=== PATIENT | male | born 1955 | race African-American/Black ===

== ENCOUNTER 2022-01-02 00:31 | Emergency (ER) | payer MEDICARE, SELFPAY ==
[2022-01-02 00:34] VITALS: BP 120/76; PULSE 100; O2SAT 97
--- NOTE | 2022-01-02 00:42 | ED.GENADULT ---
HPI - General Adult General Stated complaint: ALLERGIC RX Time Seen by Provider: 01/02/22 00:35 Source: patient and EMS Mode of arrival: EMS Limitations: no limitations History of Present Illness HPI narrative: patient comes to the emergency room from a hotel, complaining of itchiness in his neck and his back. Patient states that he has been seen a few days ago for this itchiness, he was prescribed Benadryl, no relief. patient denies chest pain or shortness of breath, no hives. Patient states the reason he came to the hospital is because he was told by his previous providers that if the symptomsdid not improve, to return to the emergency room. Patient states he has appointment pending with an life enrichment assistant in couple of months Related Data Previous Rx's Medication Instructions Recorded hydrocortisone 1 % topical cream 1 appl topical TID PRN itching 01/02/22 #28.4 grams prednisone 20 mg tablet 20 mg PO DAILY #3 tabs 01/02/22 Allergies Allergy/AdvReac Type Severity Reaction Status Date / Time No Known Allergies Allergy Verified 01/02/22 00:41 Review of Systems Review of Systems: Constitutional : No Weight loss, No Fever, No Chills, No Night Sweats, No Fatigue, No Malaise ENT/Mouth : No Hearing loss, No Ear Pain, No Nasal Congestion, No Sinus Pain, No Hoarseness, No sore throat, No Rhinorrhea, No Swallowing Difficulty Eyes: No Eye Pain, No Swelling, No Redness, No Foreign Body, No Discharge, No Vision Changes Cardiovascular : No Chest Pain, No SOB, No Dyspnea on Exertion, No Orthopnea, No Edema, No Palpitations Respiratory : No Cough, No Sputum, No Wheezing, No Smoke Exposure, No Dyspnea Gastrointestinal : No Nausea, No Vomiting, No Diarrhea, No Constipation, No abdominal Pain, No Hematochezia, No Melena Genitourinary : no irregular bleeding, No Dysuria, No Urinary Frequency, No Hematuria, No Urinary Incontinence, No Urgency, No Flank Pain, No Urinary Flow Changes, No Hesitancy Musculoskeletal : No joint pain, No Myalgias, No Joint Swelling Skin : complaining of itchy skin in the back of his neck and upper back Neuro : No Weakness, No Numbness, No Paresthesias, No Loss of Consciousness, No Dizziness, No Headache Psych : No Anxiety/Panic, No Depression, No SI/HI/AH/VH, No Social Issues, Heme/Lymph: No Bruising, No Bleeding,No Lymphadenopathy Endocrine : No Polyuria, No Polydipsia, No Temperature Intolerance Physical Exam ED Const Other: Appearance: Alert. Oriented X3. No acute distress. Eyes: Pupils equal, round and reactive to light. ENT: Pharynx normal. Neck: Normal inspection. Neck supple. No lymph nodes noted. No crepitus CVS: Normal heart rate and rhythm. Pulses normal. Normal S1 and S2 Respiratory: No respiratory distress. Breath sounds normal. No Wheezing. No rales Abdomen: Soft and nontender. No rigidity. No distention. Skin: Skin warm and dry. Normal skin color. Normal skin turgor. Extremities: No lower extremity edema. No Lacerations. No Rash Neuro: Oriented X 3. No motor deficit. No sensory deficit. Moving all extremities. No slurred speech. CN 2 through 12 grossly intact Psych: calm, cooperative, normal affect Course Course Course Narrative: patient does not have any hives, no signs of skin inflammation, no bedbugs or scabies broussard. It is possible that patient has mild dermatitis. The only thing that is new for the patient are the bed sheets at the hotel where he is staying. Patient was given p.o. prednisone and famotidine. Patient states that Benadryl does not work for him and declined taking it. Discharge Plan Discharge Clinical Impression: Contact dermatitis Patient Disposition: Home, Self-Care Instructions: Contact Dermatitis (ED) Additional Instructions: Please follow-up with your primary care physician tomorrow. If you have any worsening or new symptoms, please return to the emergency room or call 911 Prescriptions: New hydrocortisone 1 % cream 1 appl topical TID PRN (Reason: itching) Qty: 28.4 0RF prednisone 20 mg tablet 20 mg PO DAILY Qty: 3 0RF
[2022-01-02 00:43] VITALS: BP 132/69; PULSE 100; RESP 16; TEMP 37.1; O2SAT 99; BMI 28.0
[2022-01-02] MEDS: predniSONE 20 MG TABLET 40 MG PO (00:51)
[2022-01-02] MEDS: Famotidine 20 MG TABLET PO (00:51)
== END 2022-01-02 01:07 | disposition home or self-care (01) ==
LOC: HO.ED 00:55
PROVIDERS: Emergency Provider Emergency Medicine
DX: L24.9 Irritant contact dermatitis, unspecified cause (principal)
CPT/HCPCS: 99282; 99283

== ENCOUNTER 2022-01-02 02:41 | Emergency (ER) | payer MEDICARE, SELFPAY ==
--- NOTE | ~2022-01-02 | XR_ITS ---
EXAMINATION: XR CHEST CLINICAL INFORMATION: Chest pain. COMPARISON: None TECHNIQUE: Frontal view of the chest was obtained. FINDINGS: Normal appearance of the cardiomediastinal structures. Mild blunting of left costophrenic sulcus. No pneumothoraces. No focal pulmonary consolidation. Normal pattern of pulmonary vasculature. XR/XR chest 1V IMPRESSION: *Trace left pleural effusion. *Lungs clear.
--- NOTE | 2022-01-02 02:44 | ECG_ITS ---
Test Reason : CHEST PAIN Blood Pressure : / mmHG Vent. Rate : 100 BPM Atrial Rate : 100 BPM P-R Int : 154 ms QRS Dur : 082 ms QT Int : 374 ms P-R-T Axes : 014 018 074 degrees QTc Int : 482 ms Normal sinus rhythm Nonspecific T wave abnormality Prolonged QT Abnormal ECG No previous ECGs available Referred By: Generic ED Physician Electronically Signed By:PAULINE TRINIDAD MD
[2022-01-02 02:46] VITALS: BP 156/85; PULSE 100; RESP 15; TEMP 36.8; O2SAT 100; BMI 28.0
--- NOTE | 2022-01-02 02:48 | ED.CHESTPAIN ---
HPI - Chest Pain General Chief Complaint: Chest Pain Stated Complaint: chest pain Time Seen by Provider: 01/02/22 02:46 Source: patient Mode of arrival: ambulatory Limitations: no limitations History of Present Illness HPI narrative: patient was discharged about 15 minutes ago, patient was seen here a few minutes ago for contact dermatitis. patient was discharged, sent to the waiting room, could not find a ride, developed right-sided chest pain and check back in Related Data Previous Rx's Medication Instructions Recorded hydrocortisone 1 % topical cream 1 appl topical TID PRN itching 01/02/22 #28.4 grams prednisone 20 mg tablet 20 mg PO DAILY #3 tabs 01/02/22 Allergies Allergy/AdvReac Type Severity Reaction Status Date / Time No Known Allergies Allergy Verified 01/02/22 00:41 Review of Systems Review of Systems: Constitutional : No Weight loss, No Fever, No Chills, No Night Sweats, No Fatigue, No Malaise ENT/Mouth : No Hearing loss, No Ear Pain, No Nasal Congestion, No Sinus Pain, No Hoarseness, No sore throat, No Rhinorrhea, No Swallowing Difficulty Eyes: No Eye Pain, No Swelling, No Redness, No Foreign Body, No Discharge, No Vision Changes Cardiovascular : right-sided Chest Pain, No SOB, No Dyspnea on Exertion, No Orthopnea, No Edema, No Palpitations Respiratory : No Cough, No Sputum, No Wheezing, No Smoke Exposure, No Dyspnea Gastrointestinal : No Nausea, No Vomiting, No Diarrhea, No Constipation, No abdominal Pain, No Hematochezia, No Melena Genitourinary : no irregular bleeding, No Dysuria, No Urinary Frequency, No Hematuria, No Urinary Incontinence, No Urgency, No Flank Pain, No Urinary Flow Changes, No Hesitancy Musculoskeletal : No joint pain, No Myalgias, No Joint Swelling Skin : No Skin Lesions, No rash Neuro : No Weakness, No Numbness, No Paresthesias, No Loss of Consciousness, No Dizziness, No Headache Psych : No Anxiety/Panic, No Depression, No SI/HI/AH/VH, No Social Issues, Heme/Lymph: No Bruising, No Bleeding,No Lymphadenopathy Endocrine : No Polyuria, No Polydipsia, No Temperature Intolerance PMFSH Social History Social History Advance Directives: No Advance Directives Information Provided: Yes Physical Exam Vital Signs: Vital Signs: Last Vital Signs Temp 98.3 F 01/02/22 02:46 Pulse 100 01/02/22 02:46 Resp 15 01/02/22 02:46 BP 156/85 H 01/02/22 02:46 Pulse Ox 100 01/02/22 02:46 O2 Del Method 01/02/22 02:46 BMI result Body Mass Index 28.0 Const: Other: Appearance: Alert. Oriented X3. No acute distress. well-appearing Eyes: Pupils equal, round and reactive to light. ENT: Pharynx normal. Neck: Normal inspection. Neck supple. No lymph nodes noted. No crepitus CVS: Normal heart rate and rhythm. Pulses normal. Normal S1 and S2 Respiratory: No respiratory distress. Breath sounds normal. No Wheezing. No rales Abdomen: Soft and nontender. No rigidity. No distention. Skin: Skin warm and dry. Normal skin color. Normal skin turgor. Extremities: No lower extremity edema. No Lacerations. No Rash Neuro: Oriented X 3. No motor deficit. No sensory deficit. Moving all extremities. No slurred speech. CN 2 through 12 grossly intact Psych: calm, cooperative, normal affect Course Course Course Narrative: EKG normal, labs pending. troponin 1. And 2. Are within normal limits, patient does not show any acute abnormality. Patient feeling much better, requesting to be discharged. MDM - Chest Pain Lab Data Result diagrams: 01/02/22 03:05 01/02/22 03:05 Labs: Lab Results 01/02/22 01/02/22 01/02/22 Range/Units 03:05 03:05 03:05 WBC 3.9 L (4.8-10.8) X10*3/uL RBC 3.64 L (4.60-5.80) X10*6/uL Hgb 10.0 L (14.0-18.0) g/dl Hct 33.1 L (42.0-52.0) % MCV 90.9 (80.0-98.0) fL MCH 27.5 (27.0-33.0) pg MCHC 30.2 L (31.0-36.0) g/dl RDW 17.2 H (11.0-16.0) % Plt Count 279 (160-400) X10*3/uL MPV 9.2 L (9.4-12.4) fL Immature Gran % (Auto) 0.8 H (0.0-0.4) % Neut % (Auto) 76.3 H (45-73) % Lymph % (Auto) 9.9 L (20-40) % [place] % (Auto) 12.2 H (2-11) % Eos % (Auto) 0.3 (0-4) % Baso % (Auto) 0.5 (0-2) % Lymph # (Auto) 0.4 L (1.2-4.9) X10*3/uL [place] # (Auto) 0.5 (0.1-1.2) X10*3/uL Eos # (Auto) 0.0 (0.0-0.4) X10*3/uL Baso # (Auto) 0.0 (0.0-0.2) X10*3/uL Abs Immat Gran (auto) 0.03 (0.00-0.03) X10*3/uL Absolute Neuts (auto) 3.0 (2.0-8.3) x10*3/uL Absolute Nucleated RBC 0.000 (0.0-0.012) X10*3/uL Nucleated RBC % (auto) 0.0 (0.0-0.2) /100WBC Sodium 137 (135-145) mmol/L Potassium 4.4 (3.3-5.1) mmol/L Chloride 105 (96-108) mmol/L Carbon Dioxide 22 (22-29) mmol/L Anion Gap 14 (12-20) BUN 22 H (9-16) mg/dL Creatinine 1.31 (0.5-1.4) mg/dL Estim Creat Clear Calc 61.9 Estimated GFR 55 Random Glucose 139 H (60-115) mg/dL Calcium 8.5 (8.4-10.2) mg/dL Troponin I High Sens 25.7 (<3.5-35.0) ng/L 01/02/22 Range/Units 06:01 WBC (4.8-10.8) X10*3/uL RBC (4.60-5.80) X10*6/uL Hgb (14.0-18.0) g/dl Hct (42.0-52.0) % MCV (80.0-98.0) fL MCH (27.0-33.0) pg MCHC (31.0-36.0) g/dl RDW (11.0-16.0) % Plt Count (160-400) X10*3/uL MPV (9.4-12.4) fL Immature Gran % (Auto) (0.0-0.4) % Neut % (Auto) (45-73) % Lymph % (Auto) (20-40) % [place] % (Auto) (2-11) % Eos % (Auto) (0-4) % Baso % (Auto) (0-2) % Lymph # (Auto) (1.2-4.9) X10*3/uL [place] # (Auto) (0.1-1.2) X10*3/uL Eos # (Auto) (0.0-0.4) X10*3/uL Baso # (Auto) (0.0-0.2) X10*3/uL Abs Immat Gran (auto) (0.00-0.03) X10*3/uL Absolute Neuts (auto) (2.0-8.3) x10*3/uL Absolute Nucleated RBC (0.0-0.012) X10*3/uL Nucleated RBC % (auto) (0.0-0.2) /100WBC Sodium (135-145) mmol/L Potassium (3.3-5.1) mmol/L Chloride (96-108) mmol/L Carbon Dioxide (22-29) mmol/L Anion Gap (12-20) BUN (9-16) mg/dL Creatinine (0.5-1.4) mg/dL Estim Creat Clear Calc Estimated GFR Random Glucose (60-115) mg/dL Calcium (8.4-10.2) mg/dL Troponin I High Sens 28.8 (<3.5-35.0) ng/L Imaging Data Chest x-ray: Radiologist's impression: FINDINGS: Normal appearance of the cardiomediastinal structures. Mild blunting of left costophrenic sulcus. No pneumothoraces. No focal pulmonary consolidation. Normal pattern of pulmonary vasculature. XR/XR chest 1V IMPRESSION: *Trace left pleural effusion. *Lungs clear. Discharge Plan Discharge Clinical Impression: Atypical chest pain Patient Disposition: Home, Self-Care Instructions: Chest Pain (ED) Additional Instructions: Please follow-up with your primary care physician tomorrow. If you have any worsening or new symptoms, please return to the emergency room or call 911 Prescriptions: No Action hydrocortisone 1 % cream 1 appl topical TID PRN (Reason: itching) Qty: 28.4 0RF prednisone 20 mg tablet 20 mg PO DAILY Qty: 3 0RF
[2022-01-02 03:11] LABS: Basophils Percent Auto 0.5 % (0-2); Eosinophils Percent Auto 0.3 % (0-4); Hematocrit 33.1 % (42.0-52.0); Imm Gran Abs Auto 0.03 X10*3/uL (0.00-0.03); Imm Gran Pct Auto 0.8 % (0.0-0.4); Lymphocytes Absolute Auto 0.4 X10*3/uL (1.2-4.9); Lymphocytes Percent Auto 9.9 % (20-40); MANUAL DIFF FLAG NO; Mean Corpuscular HGB Conc 30.2 g/dl (31.0-36.0); Mean Corpuscular Hemoglobin 27.5 pg (27.0-33.0); Mean Corpuscular Volume 90.9 fL (80.0-98.0); Mean Platelet Volume 9.2 fL (9.4-12.4); Monocytes Absolute Auto 0.5 X10*3/uL (0.1-1.2); Monocytes Percent Auto 12.2 % (2-11); Neutrophils Percent Auto 76.3 % (45-73); Platelet Count 279 X10*3/uL (160-400); Red Blood Count 3.64 X10*6/uL (4.60-5.80); Red Cell Distribution Width 17.2 % (11.0-16.0); White Blood Count 3.9 X10*3/uL (4.8-10.8)
[2022-01-02 03:27] LABS: Anion Gap 14 (12-20); Blood Urea Nitrogen 22 mg/dL (9-16); Calcium 8.5 mg/dL (8.4-10.2); Carbon Dioxide 22 mmol/L (22-29); Chloride 105 mmol/L (96-108); Creatinine Clr Calc Pharmacy 61.9; Estimated Glomerular Filt Rate 55; Glucose Random 139 mg/dL (60-115); Potassium 4.4 mmol/L (3.3-5.1); Sodium 137 mmol/L (135-145)
[2022-01-02 03:32] LABS: Troponin-I High Sensitivity 25.7 ng/L (<3.5-35.0)
[2022-01-02] MEDS: diphenhydrAMINE HCL 25 MG TABLET 50 MG PO (05:27)
[2022-01-02 06:24] LABS: Troponin-I High Sensitivity 28.8 ng/L (<3.5-35.0)
[2022-01-02 06:31] VITALS: PULSE 80
[2022-01-02 06:45] VITALS: BP 160/89; PULSE 105; RESP 12; O2SAT 100
--- NOTE | 2022-01-02 06:58 | PC.NURSE ---
Pt reports that the benadryl did not relieve his itchy skin, however, he has not been scratching each time this RN enters room for the past hour. Pt was given 2 sandwiches and sodas.
== END 2022-01-02 06:58 | disposition home or self-care (01) ==
PROVIDERS: Emergency Provider Emergency Medicine
DX: R07.89 Other chest pain (principal); Z79.899 Other long term (current) drug therapy
CPT/HCPCS: 36415; 71045; 80048; 84484; 85025; 93005; 99284; Q0163

== ENCOUNTER 2022-01-06 08:17 | Emergency (ER) | payer MEDICARE, SELFPAY ==
--- NOTE | ~2022-01-06 | XR_ITS ---
EXAMINATION: CHEST 2 VIEWS. RIGHT FOOT. LEFT FOOT. CLINICAL INFORMATION: Pain. Pain. Pain COMPARISON: 01/02/2022 TECHNIQUE: 2 views of the chest. 3 views of the right foot. 3 views of the left foot. FINDINGS: Chest: Lungs clear. No pleural effusions. Heart and pulmonary vessels are normal. Right foot: No fracture, dislocation or destructive process. There is osteophyte formation along the dorsal hindfoot. Left foot: No fracture, dislocation or destructive process. Postsurgical changes in the posterior calcaneus are noted. XR/XR foot RT min 3V IMPRESSION: No acute findings.
--- NOTE | ~2022-01-06 | XR_ITS ---
EXAMINATION: CHEST 2 VIEWS. RIGHT FOOT. LEFT FOOT. CLINICAL INFORMATION: Pain. Pain. Pain COMPARISON: 01/02/2022 TECHNIQUE: 2 views of the chest. 3 views of the right foot. 3 views of the left foot. FINDINGS: Chest: Lungs clear. No pleural effusions. Heart and pulmonary vessels are normal. Right foot: No fracture, dislocation or destructive process. There is osteophyte formation along the dorsal hindfoot. Left foot: No fracture, dislocation or destructive process. Postsurgical changes in the posterior calcaneus are noted. XR/XR foot LT min 3V IMPRESSION: No acute findings.
--- NOTE | ~2022-01-06 | XR_ITS ---
EXAMINATION: CHEST 2 VIEWS. RIGHT FOOT. LEFT FOOT. CLINICAL INFORMATION: Pain. Pain. Pain COMPARISON: 01/02/2022 TECHNIQUE: 2 views of the chest. 3 views of the right foot. 3 views of the left foot. FINDINGS: Chest: Lungs clear. No pleural effusions. Heart and pulmonary vessels are normal. Right foot: No fracture, dislocation or destructive process. There is osteophyte formation along the dorsal hindfoot. Left foot: No fracture, dislocation or destructive process. Postsurgical changes in the posterior calcaneus are noted. XR/XR chest 2V IMPRESSION: No acute findings.
--- NOTE | ~2022-01-06 | CT_ITS ---
EXAMINATION: CT HEAD WITHOUT CONTRAST CLINICAL INFORMATION: Paresthesias of the upper and lower extremities. COMPARISON: No relevant prior imaging. TECHNIQUE: Contiguous axial imaging was performed from the skull base to vertex without intravenous administration of contrast. This CT examination was performed using dose optimization techniques as appropriate, variously including the following: *Automated exposure control *Adjustment of mA and/or kV according to patient size (this includes techniques or standardized protocols for targeted exams where dose is matched to indication/reason for exam; i.e. 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 A left mastoid air cell and middle ear cavity are completely opacified and there are erosive changes within the left petrous temporal bone. There is no intracranial mass effect or midline shift. No abnormal extra-axial collection. Lateral and third ventricles are proportionate to the subarachnoid spaces. No hydrocephalus. Palomares-white matter differentiation is grossly preserved and there is no evidence of acute territorial infarct. A lid weight within the left orbit is noted. 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 The left mastoid air cells and middle ear cavity are completely opacified and there are apparent erosive osseous changes with a left petrous temporal bone. 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 Soft tissue extends up to the stylomastoid foramen and effaces the perineural fat. Correlation with prior imaging is recommended if available to evaluate the stability of these findings. Alternatively an MRI of the skull base without and with contrast is recommended for better anatomic characterization. Otherwise unremarkable examination in that there is no evidence of acute territorial infarct or hemorrhage.
[2022-01-06 08:43] VITALS: BP 138/58; PULSE 96; O2SAT 100
[2022-01-06 08:52] VITALS: BP 134/86; PULSE 87; RESP 18; TEMP 36.9; O2SAT 98; BMI 28.0
--- NOTE | 2022-01-06 09:34 | ECG_ITS ---
Test Reason : PARESTHESIAS Blood Pressure : / mmHG Vent. Rate : 086 BPM Atrial Rate : 086 BPM P-R Int : 156 ms QRS Dur : 088 ms QT Int : 422 ms P-R-T Axes : 049 023 080 degrees QTc Int : 504 ms Normal sinus rhythm Nonspecific T wave abnormality Prolonged QT Abnormal ECG When compared with ECG of 02-JAN-2022 02:39, No significant change was found Referred By: Risa Contreras Electronically Signed By:JL GARCIA
[2022-01-06 10:46] LABS: Basophils Percent Auto 0.6 % (0-2); Eosinophils Absolute Auto 0.2 X10*3/uL (0.0-0.4); Eosinophils Percent Auto 5.3 % (0-4); Hematocrit 31.4 % (42.0-52.0); Hemoglobin 9.5 g/dl (14.0-18.0); Imm Gran Abs Auto 0.02 X10*3/uL (0.00-0.03); Imm Gran Pct Auto 0.6 % (0.0-0.4); Lymphocytes Absolute Auto 0.3 X10*3/uL (1.2-4.9); Lymphocytes Percent Auto 9.3 % (20-40); MANUAL DIFF FLAG SCAN; Mean Corpuscular HGB Conc 30.3 g/dl (31.0-36.0); Mean Corpuscular Hemoglobin 27.9 pg (27.0-33.0); Mean Corpuscular Volume 92.4 fL (80.0-98.0); Mean Platelet Volume 9.4 fL (9.4-12.4); Monocytes Absolute Auto 0.7 X10*3/uL (0.1-1.2); Monocytes Percent Auto 20.8 % (2-11); Neutrophils Absolute Auto 2.3 x10*3/uL (2.0-8.3); Neutrophils Percent Auto 63.4 % (45-73); Platelet Count 216 X10*3/uL (160-400); Red Cell Distribution Width 16.9 % (11.0-16.0); SCAN SMEAR FLAG 1; White Blood Count 3.6 X10*3/uL (4.8-10.8)
[2022-01-06 10:51] LABS: Estimated Average Glucose 103 mg/dL; Hemoglobin A1c % 5.2 %
[2022-01-06 10:55] LABS: C Reactive Protein 1.27 mg/dL (< or = 0.50); Calcium 8.3 mg/dL (8.4-10.2)
[2022-01-06 10:58] LABS: Alanine Aminotransferase 13 U/L (0-40); Albumin Level 3.2 g/dL (3.5-5.0); Alkaline Phosphatase 132 U/L (39-117); Anion Gap 12 (12-20); Aspartate Amino Transferase 21 U/L (5-37); Bilirubin Total 0.5 mg/dL (0.0-1.0); Blood Urea Nitrogen 26 mg/dL (9-16); Calcium 8.1 mg/dL (8.4-10.2); Carbon Dioxide 19 mmol/L (22-29); Chloride 111 mmol/L (96-108); Creatinine Clr Calc Pharmacy 65.4; Estimated Glomerular Filt Rate 59; Glucose Random 124 mg/dL (60-115); Magnesium 2.3 mg/dL (1.6-2.6); Potassium 4.4 mmol/L (3.3-5.1); Sodium 138 mmol/L (135-145); Total Protein 5.9 g/dL (6.5-8.0)
[2022-01-06 11:01] LABS: B Type Natriuretic Peptide 210 pg/mL (<100); Troponin-I High Sensitivity 22.3 ng/L (<3.5-35.0)
[2022-01-06] MEDS: NeoMYCIN/Polymyxin/HC Otic Sol BOTTLE 4 DROP EAR-LEFT (11:06)
[2022-01-06 11:12] LABS: SLIDE REVIEW VERIFIED
[2022-01-06 11:15] LABS: Appearance Urine CLEAR; Color Urine YELLOW; Glucose Urine UA NEG (NEG); Leukocyte Esterase Urine 1+ (NEG); Nitrite Urine NEG (NEG); UACC Culture Trigger YES; Urine Blood NEG (NEG); Urine Ketones NEG (NEG); Urine Protein NEG (NEG-TRACE)
[2022-01-06 11:23] LABS: COVID-19 Test Negative (Negative); IDNOW Serial# 9DB6401D
[2022-01-06 11:29] LABS: RBC Urine 0 /HPF (0); Squamous Epithelial Cell Urine TRACE /LPF
[2022-01-06 11:31] LABS: Calcium Oxalate Crystals Urine TRACE /LPF; Mucus Urine 1+ /LPF
[2022-01-06 11:31] LABS: Erythrocyte Sedimentation Rate 30 MM/HR (0-15)
--- NOTE | 2022-01-06 11:39 | ED_ITS ---
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 Reports intermittent chest pains that last only a few seconds and shortness of breath. Denies any dizziness, lightheadedness, changes in vision, jaw pain, arm pain, chest pain at this time, dyspnea on exertion, orthopnea, palpitations, paresthesias, nausea/vomiting/diarrhea constipation, black or bloody stools, recent travel or sick contacts, any thoughts of STDs, fevers, cough, abdominal pain, back pain, recent falls or trauma or any other symptoms complaints or concerns at this time. MD complaint: Multiple complaints Onset (ago): month(s) Related Data Previous Rx's Medication Instructions Recorded hydrocortisone 1 % topical cream 1 appl topical TID PRN itching 01/02/22 #28.4 grams prednisone 20 mg tablet 20 mg PO DAILY #3 tabs 01/02/22 Allergies Allergy/AdvReac Type Severity Reaction Status Date / Time No Known Allergies Allergy Verified 01/02/22 00:41 Review of Systems Review of Systems: Constitutional : No Weight loss, No Fever, No Chills, No Night Sweats, No Fatigue, No Malaise ENT/Mouth : + left sided decreased hearing/left ear pain/green purulent drainage from the left ear canal, No complete Hearing loss, No Nasal Congestion, No Sinus Pain, No Hoarseness, No sore throat, No Rhinorrhea, No Swallowing Difficulty Eyes: No Eye Pain, No Swelling, No Redness, No Foreign Body, No Discharge, No Vision Changes Cardiovascular :+ intermittent Chest Pain, + intermittent SOB, No Dyspnea on Exertion, No Orthopnea, No Edema, No Palpitations Respiratory : No Cough, No Sputum, No Wheezing, No Smoke Exposure, No Dyspnea Gastrointestinal : No Nausea, No Vomiting, No Diarrhea, No Constipation, No abdominal Pain, No Hematochezia, No Melena Genitourinary : no irregular bleeding, No Dysuria, No Urinary Frequency, No Hematuria, No Urinary Incontinence, No Urgency, No Flank Pain, No Urinary Flow Changes, No Hesitancy Musculoskeletal : No joint pain, No Myalgias, No Joint Swelling Skin : + itchiness, No Skin Lesions, No rash Neuro : + general weakness and paresthesias to 4th and 5th digits of bilateral hands and bilateral feet, No Focal Weakness, No Loss of Consciousness, No Dizziness, No Headache Psych : No Anxiety/Panic, No Depression, No SI/HI/AH/VH, + Social issues currently homeless staying at [place] [facility] Heme/Lymph: No Bruising, No Bleeding,No Lymphadenopathy Endocrine : No Polyuria, No Polydipsia, No Temperature Intolerance Yes all other systems are reviewed and are negative [facility] Past Medical History Attestation statement: The following information was validated with the patient. Source: old records reviewed and nursing notes reviewed Social History Social History Advance Directives: No Advance Directives Information Provided: Yes Physical Exam ED Vital Signs: Vital Signs - 24 hr 01/06/22 08:52 01/06/22 15:39 Temperature 98.5 F 98.0 F Pulse Rate 87 89 Respiratory Rate 18 16 Blood Pressure 134/86 147/81 H Pulse Oximetry 98 100 Oxygen Delivery Method Room Air Room Air BMI result Body Mass Index 28.0 vital signs have been reviewed as normal and appeared to be correct. Blood pressure normal. Heart rate normal. Respiration rate normal. Temperature normal. Oxygen saturation normal. Appearance: Alert. Oriented X3. No acute distress. Head: Normal external exam. Normocephalic. Atraumatic. Eyes: PERRLA. EOMI. Conjunctiva and sclera normal. Eyelids normal. ENT: to left external ear canal pt has green watery purulent drainage appears to have a left TM perforation. Right tympanic membrane within normal limits. Right external ear canal within normal limits. Pharynx normal. Uvula midline. Moist mucous membranes. No lesions/ulcerations or masses noted on the tongue. Normal voice. No trismus noted. No drooling noted. No muffled voice noted. Neck: Normal inspection. Neck supple. FROM. No adenopathy. Thyroid Normal. No tracheal deviation noted. No crepitus is noted. No meningeal signs. No neck mass noted. No signs of trauma noted. CVS: Normal heart rate and rhythm. Heart sound normal. Pulses normal throughout. No murmurs/rales/gallops. Respiratory: No respiratory distress. Painless inspiration. Breath sounds normal. No wheezes/rales/rhonchi noted. Chest nontender. No crepitus is noted. No signs of trauma noted. No accessory muscle usage noted or decreased air movement noted. No signs of trauma. Abdomen: Soft and nontender. Bowel sounds normal in all 4 quadrants. No distention noted. No organomegaly noted. No visible injury noted. Back: No CVA tenderness. Full range of motion noted. Nontender. No signs of trauma. Patient neuro intact bilaterally and distally on all 4 extremities. Patient's reflexes intact bilaterally and distally on all 4 extremities. No rashes/lesion/induration/fluctuance or signs of infection noted. Skin: Skin warm and dry. Normal skin color. Normal skin turgor. To the dorsal aspect of bilateral feet patient has a rash that appears brownish macular nontender no signs of infection noted at this time. Otherwise no additional rashes noted. No lesions/lacerations noted. Extremities: No lower extremity edema. No calf tenderness is noted. Extremities exhibit normal range of motion and nontender. Neuro: Oriented X 3. No motor deficit. No sensory deficit. Reflexes normal. Normal steady gait. No focal neuro deficits noted. CN's II-XII intact bilaterally? Vascular: + radial pulses/+ 2 distal pedal pulses/+2 dorsalis pedis b/l. Normal cap refill. No cyanosis noted to upper extremity nails and lower extremity toes nails. 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 Reports intermittent chest pains that last only a few seconds and shortness of breath. Plan: Labs, UA, gonorrhea chlamydia swab, syphilis blood collection, CT scan of brain, x-ray of bilateral feet, chest x-ray, EKG, COVID swab and re-evaluate. Reevaluation(s) Reevaluation #1: - labs reviewed and patient with white blood cell count of 3000 which is similar when compared to prior. - Mild anemia with an H&H of 9.5/31.4 which is drop 0.5 since he was seen here 4 days ago. I did requested do a rectal exam for stool Occult Patient is adamantly refusing reports he is not having any black or bloody stools and he is not rectally bleeding therefore he does not want that done at this time. - ESR 30. - chloride 111 - carbon dioxide 19. - BUN 26 - random glucose 124 - A1c level 5.2 - calcium 8.3 - alkaline phosphate 132 - CRP 1.27 - BNP 210 - total protein 5.9 - albumin 3.2 - UA with leukocytes otherwise negative nitrates not consistent with UTI at this time. - COVID swab negative. - chest x-ray and bilateral foot x-rays within normal limits revealed chronic changes no acute processes noted. - CT scan of brain revealed left mastoid air cells and middle ear cavity are completely opacified and there are apparent erosive osseous changes with a left petrous temporal bone. 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 Soft tissue extends up to the styloid mastoid foramen. Soft tissue extends up to the stylomastoid foramen and effaces the perineural fat. - therefore I discussed this case with Dr. Espino and she recommended due to the patient has poor follow-up and does not have a regular PCP that he can follow up with that we should transfer him to a tertiary center that has ENT available. Patient is agreeable to this. Time: 11:58 Reevaluation #2: - Patient accepted to [facility] Dr. Jennings accepting Doctor pt understands and agrees with plan. Time: 12:57 Reevaluation #3: Patient picked up by EMS at this time. Patient will be transferred to [facility] via EMS. Time: 17:31 Medical Decision Making Medical Records Medical records reviewed: Yes I reviewed the patient's medical records. Lab Data Lab results reviewed: Yes I reviewed the patient's lab results. Result diagrams: 01/06/22 10:30 01/06/22 10:30 Labs: Lab Results 01/06/22 01/06/22 01/06/22 Range/Units 10:30 10:30 10:30 WBC 3.6 L (4.8-10.8) X10*3/uL RBC 3.40 L (4.60-5.80) X10*6/uL Hgb 9.5 L (14.0-18.0) g/dl Hct 31.4 L (42.0-52.0) % MCV 92.4 (80.0-98.0) fL MCH 27.9 (27.0-33.0) pg MCHC 30.3 L (31.0-36.0) g/dl RDW 16.9 H (11.0-16.0) % Plt Count 216 (160-400) X10*3/uL MPV 9.4 (9.4-12.4) fL Immature Gran % (Auto) 0.6 H (0.0-0.4) % Neut % (Auto) 63.4 (45-73) % Lymph % (Auto) 9.3 L (20-40) % [place] % (Auto) 20.8 H (2-11) % Eos % (Auto) 5.3 H (0-4) % Baso % (Auto) 0.6 (0-2) % Lymph # (Auto) 0.3 L (1.2-4.9) X10*3/uL [place] # (Auto) 0.7 (0.1-1.2) X10*3/uL Eos # (Auto) 0.2 (0.0-0.4) X10*3/uL Baso # (Auto) 0.0 (0.0-0.2) X10*3/uL Abs Immat Gran (auto) 0.02 (0.00-0.03) X10*3/uL Absolute Neuts (auto) 2.3 (2.0-8.3) x10*3/uL Absolute Nucleated RBC 0.000 (0.0-0.012) X10*3/uL Nucleated RBC % (auto) 0.0 (0.0-0.2) /100WBC Smear Tech's Comments VERIFIED ESR (0-15) MM/HR Sodium 138 (135-145) mmol/L Potassium 4.4 (3.3-5.1) mmol/L Chloride 111 H (96-108) mmol/L Carbon Dioxide 19 L (22-29) mmol/L Anion Gap 12 (12-20) BUN 26 H (9-16) mg/dL Creatinine 1.24 (0.5-1.4) mg/dL Estim Creat Clear Calc 65.4 Estimated GFR 59 Random Glucose 124 H (60-115) mg/dL Estimat Average Glucose 103 mg/dL Hemoglobin A1c % 5.2 % Calcium 8.1 L (8.4-10.2) mg/dL Magnesium 2.3 (1.6-2.6) mg/dL Total Bilirubin 0.5 (0.0-1.0) mg/dL AST 21 (5-37) U/L ALT 13 (0-40) U/L Alkaline Phosphatase 132 H (39-117) U/L Troponin I High Sens (<3.5-35.0) ng/L C-Reactive Protein (< or = 0.50) mg/dL B-Natriuretic Peptide (<100) pg/mL Total Protein 5.9 L (6.5-8.0) g/dL Albumin 3.2 L (3.5-5.0) g/dL Urine Color Urine Appearance Urine pH (5.0-8.0) Ur Specific [place] (1.005-1.025) Urine Protein (NEG-TRACE) MG/DL Urine Glucose (UA) (NEG) MG/DL Urine Ketones (NEG) MG/DL Urine Blood (NEG) Urine Nitrite (NEG) Ur Leukocyte Esterase (NEG) Urine RBC (0) /HPF Urine WBC (0-4) /HPF Ur Squamous Epith Cells /LPF Calcium Oxalate Crystal /LPF Urine Bacteria /LPF Urine Mucus /LPF Chlam trachomat DNA PCR (Not Detect.) COVID-19 (DERRELL) (Negative) COVID-19 Clin Com N.gonorrhoeae DNA (PCR) (Not Detect.) 01/06/22 01/06/22 01/06/22 Range/Units 10:30 10:30 10:30 WBC (4.8-10.8) X10*3/uL RBC (4.60-5.80) X10*6/uL Hgb (14.0-18.0) g/dl Hct (42.0-52.0) % MCV (80.0-98.0) fL MCH (27.0-33.0) pg MCHC (31.0-36.0) g/dl RDW (11.0-16.0) % Plt Count (160-400) X10*3/uL MPV (9.4-12.4) fL Immature Gran % (Auto) (0.0-0.4) % Neut % (Auto) (45-73) % Lymph % (Auto) (20-40) % [place] % (Auto) (2-11) % Eos % (Auto) (0-4) % Baso % (Auto) (0-2) % Lymph # (Auto) (1.2-4.9) X10*3/uL [place] # (Auto) (0.1-1.2) X10*3/uL Eos # (Auto) (0.0-0.4) X10*3/uL Baso # (Auto) (0.0-0.2) X10*3/uL Abs Immat Gran (auto) (0.00-0.03) X10*3/uL Absolute Neuts (auto) (2.0-8.3) x10*3/uL Absolute Nucleated RBC (0.0-0.012) X10*3/uL Nucleated RBC % (auto) (0.0-0.2) /100WBC Smear Tech's Comments ESR 30 H (0-15) MM/HR Sodium (135-145) mmol/L Potassium (3.3-5.1) mmol/L Chloride (96-108) mmol/L Carbon Dioxide (22-29) mmol/L Anion Gap (12-20) BUN (9-16) mg/dL Creatinine (0.5-1.4) mg/dL Estim Creat Clear Calc Estimated GFR Random Glucose (60-115) mg/dL Estimat Average Glucose mg/dL Hemoglobin A1c % % Calcium 8.3 L (8.4-10.2) mg/dL Magnesium (1.6-2.6) mg/dL Total Bilirubin (0.0-1.0) mg/dL AST (5-37) U/L ALT (0-40) U/L Alkaline Phosphatase (39-117) U/L Troponin I High Sens 22.3 (<3.5-35.0) ng/L C-Reactive Protein 1.27 H (< or = 0.50) mg/dL B-Natriuretic Peptide 210 H (<100) pg/mL Total Protein (6.5-8.0) g/dL Albumin (3.5-5.0) g/dL Urine Color Urine Appearance Urine pH (5.0-8.0) Ur Specific [place] (1.005-1.025) Urine Protein (NEG-TRACE) MG/DL Urine Glucose (UA) (NEG) MG/DL Urine Ketones (NEG) MG/DL Urine Blood (NEG) Urine Nitrite (NEG) Ur Leukocyte Esterase (NEG) Urine RBC (0) /HPF Urine WBC (0-4) /HPF Ur Squamous Epith Cells /LPF Calcium Oxalate Crystal /LPF Urine Bacteria /LPF Urine Mucus /LPF Chlam trachomat DNA PCR (Not Detect.) COVID-19 (DERRELL) (Negative) COVID-19 Clin Com N.gonorrhoeae DNA (PCR) (Not Detect.) 01/06/22 01/06/22 01/06/22 Range/Units 10:59 11:00 11:00 WBC (4.8-10.8) X10*3/uL RBC (4.60-5.80) X10*6/uL Hgb (14.0-18.0) g/dl Hct (42.0-52.0) % MCV (80.0-98.0) fL MCH (27.0-33.0) pg MCHC (31.0-36.0) g/dl RDW (11.0-16.0) % Plt Count (160-400) X10*3/uL MPV (9.4-12.4) fL Immature Gran % (Auto) (0.0-0.4) % Neut % (Auto) (45-73) % Lymph % (Auto) (20-40) % [place] % (Auto) (2-11) % Eos % (Auto) (0-4) % Baso % (Auto) (0-2) % Lymph # (Auto) (1.2-4.9) X10*3/uL [place] # (Auto) (0.1-1.2) X10*3/uL Eos # (Auto) (0.0-0.4) X10*3/uL Baso # (Auto) (0.0-0.2) X10*3/uL Abs Immat Gran (auto) (0.00-0.03) X10*3/uL Absolute Neuts (auto) (2.0-8.3) x10*3/uL Absolute Nucleated RBC (0.0-0.012) X10*3/uL Nucleated RBC % (auto) (0.0-0.2) /100WBC Smear Tech's Comments ESR (0-15) MM/HR Sodium (135-145) mmol/L Potassium (3.3-5.1) mmol/L Chloride (96-108) mmol/L Carbon Dioxide (22-29) mmol/L Anion Gap (12-20) BUN (9-16) mg/dL Creatinine (0.5-1.4) mg/dL Estim Creat Clear Calc Estimated GFR Random Glucose (60-115) mg/dL Estimat Average Glucose mg/dL Hemoglobin A1c % % Calcium (8.4-10.2) mg/dL Magnesium (1.6-2.6) mg/dL Total Bilirubin (0.0-1.0) mg/dL AST (5-37) U/L ALT (0-40) U/L Alkaline Phosphatase (39-117) U/L Troponin I High Sens (<3.5-35.0) ng/L C-Reactive Protein (< or = 0.50) mg/dL B-Natriuretic Peptide (<100) pg/mL Total Protein (6.5-8.0) g/dL Albumin (3.5-5.0) g/dL Urine Color YELLOW Urine Appearance CLEAR Urine pH 6.0 (5.0-8.0) Ur Specific [place] 1.020 (1.005-1.025) Urine Protein NEG (NEG-TRACE) MG/DL Urine Glucose (UA) NEG (NEG) MG/DL Urine Ketones NEG (NEG) MG/DL Urine Blood NEG (NEG) Urine Nitrite NEG (NEG) Ur Leukocyte Esterase 1+ H (NEG) Urine RBC 0 (0) /HPF Urine WBC 1-4 (0-4) /HPF Ur Squamous Epith Cells TRACE /LPF Calcium Oxalate Crystal TRACE /LPF Urine Bacteria NONE /LPF Urine Mucus 1+ /LPF Chlam trachomat DNA PCR NOT DETECTED (Not Detect.) COVID-19 (DERRELL) Negative (Negative) COVID-19 Clin Com See Note N.gonorrhoeae DNA (PCR) NOT DETECTED (Not Detect.) 01/06/22 Range/Units 13:19 WBC (4.8-10.8) X10*3/uL RBC (4.60-5.80) X10*6/uL Hgb (14.0-18.0) g/dl Hct (42.0-52.0) % MCV (80.0-98.0) fL MCH (27.0-33.0) pg MCHC (31.0-36.0) g/dl RDW (11.0-16.0) % Plt Count (160-400) X10*3/uL MPV (9.4-12.4) fL Immature Gran % (Auto) (0.0-0.4) % Neut % (Auto) (45-73) % Lymph % (Auto) (20-40) % [place] % (Auto) (2-11) % Eos % (Auto) (0-4) % Baso % (Auto) (0-2) % Lymph # (Auto) (1.2-4.9) X10*3/uL [place] # (Auto) (0.1-1.2) X10*3/uL Eos # (Auto) (0.0-0.4) X10*3/uL Baso # (Auto) (0.0-0.2) X10*3/uL Abs Immat Gran (auto) (0.00-0.03) X10*3/uL Absolute Neuts (auto) (2.0-8.3) x10*3/uL Absolute Nucleated RBC (0.0-0.012) X10*3/uL Nucleated RBC % (auto) (0.0-0.2) /100WBC Smear Tech's Comments ESR (0-15) MM/HR Sodium (135-145) mmol/L Potassium (3.3-5.1) mmol/L Chloride (96-108) mmol/L Carbon Dioxide (22-29) mmol/L Anion Gap (12-20) BUN (9-16) mg/dL Creatinine (0.5-1.4) mg/dL Estim Creat Clear Calc Estimated GFR Random Glucose (60-115) mg/dL Estimat Average Glucose mg/dL Hemoglobin A1c % % Calcium (8.4-10.2) mg/dL Magnesium (1.6-2.6) mg/dL Total Bilirubin (0.0-1.0) mg/dL AST (5-37) U/L ALT (0-40) U/L Alkaline Phosphatase (39-117) U/L Troponin I High Sens 22.1 (<3.5-35.0) ng/L C-Reactive Protein (< or = 0.50) mg/dL B-Natriuretic Peptide (<100) pg/mL Total Protein (6.5-8.0) g/dL Albumin (3.5-5.0) g/dL Urine Color Urine Appearance Urine pH (5.0-8.0) Ur Specific [place] (1.005-1.025) Urine Protein (NEG-TRACE) MG/DL Urine Glucose (UA) (NEG) MG/DL Urine Ketones (NEG) MG/DL Urine Blood (NEG) Urine Nitrite (NEG) Ur Leukocyte Esterase (NEG) Urine RBC (0) /HPF Urine WBC (0-4) /HPF Ur Squamous Epith Cells /LPF Calcium Oxalate Crystal /LPF Urine Bacteria /LPF Urine Mucus /LPF Chlam trachomat DNA PCR (Not Detect.) COVID-19 (DERRELL) (Negative) COVID-19 Clin Com N.gonorrhoeae DNA (PCR) (Not Detect.) Imaging Data CT scan of brain without contrast: Attestation: I personally reviewed and interpreted this imaging study as follows: Radiologist's impression: FINDINGS: 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 A left mastoid air cell and middle ear cavity are completely opacified and there are erosive changes within the left petrous temporal bone. There is no intracranial mass effect or midline shift. No abnormal extra-axial collection. Lateral and third ventricles are proportionate to the subarachnoid spaces. No hydrocephalus. Palomares-white matter differentiation is grossly preserved and there is no evidence of acute territorial infarct. A lid weight within the left orbit is noted. ? 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 The left mastoid air cells and middle ear cavity are completely opacified and there are apparent erosive osseous changes with a left petrous temporal bone. 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 Soft tissue extends up to the stylomastoid foramen and effaces the perineural fat. Correlation with prior imaging is recommended if available to evaluate the stability of these findings. Alternatively an MRI of the skull base without and with contrast is recommended for better anatomic characterization. Otherwise unremarkable examination in that there is no evidence of acute territorial infarct or hemorrhage. Chest x-ray: Attestation: I personally reviewed and interpreted this imaging study as follows: Radiologist's impression: FINDINGS: Chest: Lungs clear. No pleural effusions. Heart and pulmonary vessels are normal. Right foot: No fracture, dislocation or destructive process. There is osteophyte formation along the dorsal hindfoot. Left foot: No fracture, dislocation or destructive process. Postsurgical changes in the posterior calcaneus are noted.? XR/XR chest 2V IMPRESSION: No acute findings.? Bilateral foot x-rays: Attestation: I personally reviewed and interpreted this imaging study as follows: Radiologist's impression: FINDINGS: Right foot: No fracture, dislocation or destructive process. There is osteophyte formation along the dorsal hindfoot. Left foot: No fracture, dislocation or destructive process. Postsurgical changes in the posterior calcaneus are noted.? XR/XR foot RT min 3V IMPRESSION: No acute findings.? ECG Data Attestation: I personally reviewed and interpreted this ECG as follows: Interpretation: Normal sinus rhythm with ventricular rate of 86 with nonspecific T-wave abnormalities with a prolonged QTc of 422 milliseconds otherwise no acute ischemic change are noted. Similar compared to prior EKG 01/02/2022 Critical Care Time Critical Care Time Critical Care Time: Yes Total Critical Care Time: 60 Attestation: I personally attest to this time spent taking care of the patient Discharge Plan Discharge Clinical Impression: Acute otitis externa of left ear, Anemia, Itching, Mass of petrous temporal bone, Ear mass Patient Disposition: [facility] Transfer Details: [facility] Chartoff Prescriptions: No Action hydrocortisone 1 % cream 1 appl topical TID PRN (Reason: itching) Qty: 28.4 0RF prednisone 20 mg tablet 20 mg PO DAILY Qty: 3 0RF
--- NOTE | 2022-01-06 12:29 | PC.NURSE ---
@ [id number] [facility] PT TX LINE CALLED AT REQUEST OF DEMI SEWELL FOR AN ENT TYPE TX [place] ANSWERS AND STATES THEY ARE CLOSED TO MOST TX. ONLY A LIMITED SERVICES ARE BEING ACCEPTED AT THIS TIME
--- NOTE | 2022-01-06 12:31 | PC.NURSE ---
@ 1231 CALL PLACED TO [facility] TX LINE @ DEMI SEWELL REQUEST FOR ENT SERVICES [place] ANSWERS AND SAYS THEY ARE AT A CRITICAL CAPACITY AND ARE OPEN ONLY TO CERTAIN SERVICES, ENT IS NOT ONE OF THEM
--- NOTE | 2022-01-06 12:50 | PC.NURSE ---
@ [phone] CALL PLACED TO [facility] TX LINE @ DEMI SEWELL REQUEST MIKE ANSWERS, TAKES PT INFO AND THEN ASKS TO SPEAK WITH DONATO
[2022-01-06] MEDS: hydrOXYzine HCL 50 MG TABLET PO (13:07)
[2022-01-06 13:46] LABS: Troponin-I High Sensitivity 22.1 ng/L (<3.5-35.0)
[2022-01-06 14:05] LABS: CT PCR NOT DETECTED (Not Detect.); NG PCR NOT DETECTED (Not Detect.)
[2022-01-06 15:39] VITALS: BP 147/81; PULSE 89; RESP 16; TEMP 36.7; O2SAT 100
--- NOTE | 2022-01-06 17:49 | PC.NURSE ---
nurse to nurse called to [facility] JYOTI Simmons. Pt transported via BLS [id number]
[2022-01-07 08:24] LABS: Syphilis Screen Nonreactive (Nonreactive)
[2022-01-08 02:26] LABS: Lyme Abs Screen <0.90 index
== END 2022-01-06 17:45 | disposition short-term general hospital (02) ==
PROVIDERS: Physician Assistant Medical; Emergency Provider Emergency Medicine
DX: H60.502 Unspecified acute noninfective otitis externa, left ear (principal); H93.8X2 Other specified disorders of left ear; M89.8X8 Other specified disorders of bone, other site; L29.9 Pruritus, unspecified; D64.9 Anemia, unspecified; R20.2 Paresthesia of skin; I10 Essential (primary) hypertension; E11.9 Type 2 diabetes mellitus without complications; Z20.822 Contact with and (suspected) exposure to COVID-19
CPT/HCPCS: 36415; 70450; 71046; 73630; 80053; 81001; 81003; 82310; 83036; 83735; 83880; 84484; 85025; 85652; 86140; 86617; 86618; 86780; 87086; 87491; 87591; 87635; 93005; 99285

== ENCOUNTER 2022-04-16 16:32 | Emergency (ER) | payer MEDICARE, SELFPAY ==
--- NOTE | ~2022-04-16 | XR_ITS ---
EXAMINATION: XR CHEST CLINICAL INFORMATION: Dizziness. COMPARISON: January 06, 2022. TECHNIQUE: Frontal view of the chest was obtained. FINDINGS: No significant abnormality is noted involving the heart, lungs, mediastinum, or soft tissues. 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 Mild degenerative changes of the spine. XR/XR chest 1V IMPRESSION: Unremarkable examination.
--- NOTE | ~2022-04-16 | CT_ITS ---
CT HEAD WITHOUT CONTRAST CLINICAL INFORMATION: Dizziness. COMPARISON: CT head 01/06/2022. TECHNIQUE: Contiguous axial imaging was performed from the skull base to vertex without intravenous administration of contrast. This CT examination was performed using dose optimization techniques as appropriate, variously including the following: *Automated exposure control *Adjustment of mA and/or kV according to patient size (this includes techniques or standardized protocols for targeted exams where dose is matched to indication/reason for exam; i.e. extremities or head) *Use of iterative reconstruction technique FINDINGS: There is no intracranial hemorrhage, hydrocephalus, extra-axial surface collection, midline shift, or other herniation pattern. Palomares to white matter differentiation is diffusely maintained without evidence of an evolved acute territorial infarct. The basilar cisterns are preserved. Redemonstrated complete opacification of left mastoid air cells and left middle ear cavity associated with progressive mastoid air cell septa erosive changes and progressive erosive changes involving the left tympanic plate and the periphery of the left middle ear cavity. 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 Redemonstrated left parotidectomy changes with progressive soft tissue within the parotidectomy bed encasing the left styloid process infiltrating the left stylomastoid and now opposing the dorsal margin of the left lateral pterygoid muscle. Findings are most concerning for tumor progression which can be correlated with any recent prior studies if available. A metallic lid weight within the left upper orbit is again noted. CT/CT head/brain wo IV con IMPRESSION: - Redemonstrated complete opacification of left mastoid air cells and left middle ear cavity associated with progressive mastoid air cell septa erosive changes and progressive erosive changes involving the left tympanic plate and the periphery of the left middle ear cavity. 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 - Redemonstrated left parotidectomy changes with progressive soft tissue within the parotidectomy bed encasing the left styloid process infiltrating the left stylomastoid and now opposing the dorsal margin of the left lateral pterygoid muscle. Findings are most concerning for tumor progression which can be correlated with any recent prior studies if available. - A metallic lid weight within the left upper orbit is again noted.
[2022-04-16 17:47] VITALS: BP 154/88; PULSE 97; RESP 20; TEMP 36.6; O2SAT 100; BMI 29.5
[2022-04-17 08:04] VITALS: BP 135/79; PULSE 86; RESP 16; O2SAT 96
--- NOTE | 2022-04-17 08:05 | ED_ITS ---
HPI - General Adult General Chief complaint: Ear Problems Stated complaint: ?Ear infection/Legs swelling/Unsteady gait Time Seen by Provider: 04/17/22 07:03 Source: patient and family (sister) Mode of arrival: ambulatory Limitations: no limitations History of Present Illness HPI narrative: Patient is a 67 year old male presenting to the emergency department today with left ear pain, difficulty urinating, and intermittent dizziness. Patient states that he has had issues with his left ear before that got so bad, he had to be put into short term rehab to recover from it. Patient states that he believes it is infected again. Patient states that he feels somewhat weak and like his lower legs might be swelling some. Patient states he has also been having issues urinating. Patient's sister states that she is unable to appropriately help care for the patient at her home and that he will need rehab placement. Patient's sister states that the patient has severe pica and eats paper. Patient's sister states that the patient previously ate through an entire binder of his previous medical records. Patient denies any current dizziness, lightheadedness, abdominal pain, nausea, vomiting, fever, chills, blurry vision, double vision, loss of vision, chest pain, difficulty breathing, shortness of breath, back pain, night sweats, pain with urination, increased urinary frequency, increased urinary urgency, blood in his urine or stool, syncope or a near syncopal episode, recent trauma or falls, bowel incontinence, bladder incontinence, bowel retention, or any other complaints at this time. Onset (ago): day(s) Radiation: non-radiation Severity: mild Severity scale (1-10): 3 Relieving factors: none Exacerbating factors: none Associated symptoms: denies other symptoms Treatments prior to arrival: none Related Data Home Medications Medication Instructions Recorded Confirmed acetaminophen 325 mg tablet 650 mg PO BID 04/17/22 04/17/22 cefuroxime axetil 500 mg tablet 500 mg PO BID 04/17/22 04/17/22 empagliflozin 10 mg tablet 10 mg PO DAILY 04/17/22 04/17/22 ergocalciferol (vitamin D2) 1,250 1,250 mcg PO TU@1000 04/17/22 04/17/22 mcg (50,000 unit) capsule (Vitamin D2) finasteride 5 mg tablet 5 mg PO DAILY 04/17/22 04/17/22 folic acid 1 mg tablet 1 mg PO DAILY 04/17/22 04/17/22 gabapentin 300 mg capsule 300 mg PO TID 04/17/22 04/17/22 hydroxyzine HCl 25 mg tablet 25 mg PO Q6H PRN Itching 04/17/22 04/17/22 insulin glargine 100 unit/mL 5 unit subcut BEDTIME 04/17/22 04/17/22 subcutaneous solution (Lantus U-100 Insulin) insulin lispro 100 unit/mL 1 sliding scale dose subcut 04/17/22 04/17/22 subcutaneous cartridge (Humalog USEASDIRECTD U-100 Insulin) lisinopril 5 mg tablet 5 mg PO DAILY 04/17/22 04/17/22 lovastatin 10 mg tablet 10 mg PO BEDTIME 04/17/22 04/17/22 magnesium L-lactate 84 mg 84 mg PO TID 04/17/22 04/17/22 tablet,extended release metformin 500 mg tablet 500 mg PO DAILY 04/17/22 04/17/22 metoprolol succinate 25 mg 25 mg PO DAILY 04/17/22 04/17/22 tablet,extended release 24 hr tamsulosin 0.4 mg capsule (Flomax) 0.4 mg PO BEDTIME 04/17/22 04/17/22 Allergies Allergy/AdvReac Type Severity Reaction Status Date / Time Penicillins Allergy Fever Verified 04/16/22 17:50 Review of Systems Constitutional: Constitutional: Reports no additional constitutional complaints, Denies chills, Denies fever(s) and Denies night sweats Eyes: Eyes: Reports no additional eye complaints, Denies blurry vision, Denies change in vision, Denies diplopia, Denies eye discharge, Denies loss of vision and Denies eye pain ENT: Reports dizziness (intermittent) Comments: left ear pain Cardiovascular: Cardiovascular: Reports no additional cardiovascular complaints, Denies chest pain, Reports leg edema, Denies lightheadedness, Denies Loss of Consciousness and Denies dyspnea Respiratory: Respiratory: Reports no additional respiratory complaints and Denies dyspnea Gastrointestinal: Gastrointestinal: Reports no additional gastrointestinal complaints, Denies abdominal pain, Denies melena, Denies hematochezia, Denies change in bowel habits and Denies change in stool character Genitourinary: Genitourinary: Reports no additional male genitourinary complaints, Denies hematuria, Denies oliguria, Reports difficulty urinating, Denies dysuria, Denies urinary frequency, Denies urinary hesitancy, Denies urinary incontinence and Denies urinary urgency Musculoskeletal: Musculoskeletal: Reports no additional musculoskeletal complaints, Denies numbness and Denies tingling Neurologic: Reports dizziness (intermittent), Denies loss of vision, Denies numbness and Denies tingling Psychiatric: Psychiatric: Reports no additional psychiatric complaints Endocrine: Endocrine: Reports no additional endocrine complaints Hematologic/Lymphatic: Hematologic/Lymphatic: Reports no additional hematologic/lymphatic complaints Allergic/Immunologic: Allergic/Immunologic: Reports no additional allergic/immunologic complaints PMFSH Past Medical History Attestation statement: The following information was validated with the patient. (validated with the patient's sister) Source: old records reviewed and obtained from family (patient's sister) Social History Social History Advance Directives: Yes Advance Directives Information Provided: Yes Advance Directives on File: No Physical Exam ED Vital Signs: Vital Signs - 24 hr 04/17/22 08:04 04/17/22 13:18 04/17/22 15:46 Temperature 98.1 F Pulse Rate 86 89 81 Respiratory Rate 16 12 14 Blood Pressure 135/79 150/85 H 113/54 L Pulse Oximetry 96 100 100 Oxygen Delivery Method Room Air Room Air Room Air 04/17/22 15:46 Temperature Pulse Rate 89 Respiratory Rate Blood Pressure 150/85 H Pulse Oximetry 100 Oxygen Delivery Method BMI result Body Mass Index 29.5 Const General: cooperative, no acute distress, alert and awake Nutritional Appearance: well nourished Orientation/consciousness: patient oriented x3 Limitations: no limitations [facility] Head: Yes normal to inspection and Yes atraumatic Ears: hearing grossly normal bilaterally, external ears normal and Abnormal EAC present otic discharge purulent on the left General nose exam: Normal external nose present, no nasal discharge noted and no epistaxis Face and sinus: Yes normal facial exam, No abrasion and No laceration Mouth: Normal oral and palatal mucosa present, no drooling and no muffled voice Eyes General: appearance normal, both eyes and all related structures Periorbital: periorbital findings normal Eyelids: Yes eyelids normal Conjunctivae: conjunctivae normal Pupils: Equal, round and reactive pupils present EOM: EOMs intact bilaterally Neck Neck: Yes normal visual inspection, Yes full ROM and Yes no lymphadenopathy Chest Chest palpation & inspection: normal inspection of the chest Resp Effort & Inspection: normal respiratory effort and able to speak in complete sentences Auscultation: clear to auscultation bilaterally Cardio Rate: regular rate Rhythm: regular rhythm Peripheral pulses: Peripheral pulses 2+ throughout GI Inspection: Yes normal to inspection Neuro General: patient oriented x3 and moves all extremities Cranial nerves: Yes Equal, round and reactive pupils present Cognition (Neuro): normal cognition Motor exam (neuro): 5/5 motor strength present throughout Sensory Exam: Normal double simultaneous stimulation for sensation Coordination: [id number] test normal Extrem General: Yes normal to inspection, Yes full ROM, Yes capillary refill normal and Yes no pedal edema Psych Appearance: grossly normal Mental Status: mental status grossly normal Affect: normal affect Attitude: cooperative Thought process: Normal thought process present Thought content: Normal thought content present Insight: Good insight present (Psych) Course Reevaluation(s) Reevaluation #1: Call [facility] transfer line to consult ENT there since that is where he was sent previously for the 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 Time: 16:56 Reevaluation #2: Spoke to Dr. Ha, an ENT from [facility], who recommended the patient be transferred down to a medical bed for admission. States that a surgery was supposed to be performed back in February but there was some concern about his cardiac condition. Time: 17:25 Medical Decision Making MDM Narrative Medical decision making narrative: Patient is a 67 year old male presenting to the emergency department today with left ear pain, difficulty urinating, and intermittent dizziness. Patient's physical exam showed extensive purulent discharge from his left ear. Patient's blood work showed a Creatinine of 1.47, initial troponin of 47.5 and repeat of 4 4.4, and a BNP of 475. Patient's bladder scan showed >1,000ml so a joiner catheter was placed. Patient's urine showed no acute process. Patient's EKG was unremarkable. Patient's chest x-ray showed no acute process. Patient's head CT showed worsening mastroid air cell septa erosive changes and progressive erosive changes involving the left tympanic plate / periphery of the left middle ear cavity. Patient was previously transferred to [facility] for this back in February. I spoke to the ENT enterprise solutions architect at [facility], Dr. Ha, who recommended the patient be transferred back down to [facility] so that he can get the surgery he was recommended to get back in February of this year. Patient accepted for transfer by DEMI Zuñiga on behalf of Dr. Montano at [facility]. Patient is not septic and his clinical picture is not consistent with sepsis. I explained my physical exam findings as well as all test results to the patient and the patient's sister. I answered all questions asked by the patient and the patient's sister. Patient and the patient's sister verbalized agreement and understanding with this treatment plan and transfer to [facility]. Medical Records Medical records reviewed: Yes I reviewed the patient's medical records. Lab Data Lab results reviewed: Yes I reviewed the patient's lab results. Result diagrams: 04/17/22 10:58 04/17/22 10:58 Labs: Lab Results 04/17/22 04/17/22 04/17/22 Range/Units 09:55 10:58 10:58 WBC 5.4 (4.8-10.8) X10*3/uL RBC 4.30 L D (4.60-5.80) X10*6/uL Hgb 10.4 L (14.0-18.0) g/dl Hct 34.6 L (42.0-52.0) % MCV 80.5 (80.0-98.0) fL MCH 24.2 L (27.0-33.0) pg MCHC 30.1 L (31.0-36.0) g/dl RDW 17.4 H (11.0-16.0) % Plt Count 408 H D (160-400) X10*3/uL MPV 9.6 (9.4-12.4) fL Immature Gran % (Auto) 0.6 H (0.0-0.4) % Neut % (Auto) 72.0 (45-73) % Lymph % (Auto) 9.3 L (20-40) % [place] % (Auto) 9.1 (2-11) % Eos % (Auto) 8.6 H (0-4) % Baso % (Auto) 0.4 (0-2) % Lymph # (Auto) 0.5 L (1.2-4.9) X10*3/uL [place] # (Auto) 0.5 (0.1-1.2) X10*3/uL Eos # (Auto) 0.5 H (0.0-0.4) X10*3/uL Baso # (Auto) 0.0 (0.0-0.2) X10*3/uL Abs Immat Gran (auto) 0.03 (0.00-0.03) X10*3/uL Absolute Neuts (auto) 3.9 (2.0-8.3) x10*3/uL Absolute Nucleated RBC 0.000 (0.0-0.012) X10*3/uL Nucleated RBC % (auto) 0.0 (0.0-0.2) /100WBC Sodium 141 (135-145) mmol/L Potassium 4.6 (3.3-5.1) mmol/L Chloride 110 H (96-108) mmol/L Carbon Dioxide 20 L (22-29) mmol/L Anion Gap 16 (12-20) BUN 23 H (9-16) mg/dL Creatinine 1.47 H (0.5-1.4) mg/dL Estim Creat Clear Calc 55.7 Estimated GFR 48 Random Glucose 123 H (60-115) mg/dL Calcium 8.8 D (8.4-10.2) mg/dL Magnesium 2.2 (1.6-2.6) mg/dL Total Bilirubin 0.4 (0.0-1.0) mg/dL AST 25 (5-37) U/L ALT 22 (0-40) U/L Alkaline Phosphatase 148 H (39-117) U/L Troponin I High Sens (<3.5-35.0) ng/L B-Natriuretic Peptide (<100) pg/mL Total Protein 7.1 D (6.5-8.0) g/dL Albumin 3.7 (3.5-5.0) g/dL Urine Color Urine Appearance Urine pH (5.0-9.0) Ur Specific [place] (1.005-1.025) Urine Protein (Neg-Trace) mg/dL Urine Glucose (UA) (Negative) mg/dL Urine Ketones (Negative) mg/dL Urine Blood (Negative) Urine Nitrite (Negative) Ur Leukocyte Esterase (Negative) Urine RBC (0-2) /HPF Urine WBC (0-5) /HPF Ur Squamous Epith Cells (0-2) /HPF Urine Bacteria (None Seen) Hyaline Casts (0-2) /LPF COVID-19 (DERRELL) Negative (Negative) COVID-19 Clin Com See Note 04/17/22 04/17/22 04/17/22 Range/Units 10:58 11:25 13:16 WBC (4.8-10.8) X10*3/uL RBC (4.60-5.80) X10*6/uL Hgb (14.0-18.0) g/dl Hct (42.0-52.0) % MCV (80.0-98.0) fL MCH (27.0-33.0) pg MCHC (31.0-36.0) g/dl RDW (11.0-16.0) % Plt Count (160-400) X10*3/uL MPV (9.4-12.4) fL Immature Gran % (Auto) (0.0-0.4) % Neut % (Auto) (45-73) % Lymph % (Auto) (20-40) % [place] % (Auto) (2-11) % Eos % (Auto) (0-4) % Baso % (Auto) (0-2) % Lymph # (Auto) (1.2-4.9) X10*3/uL [place] # (Auto) (0.1-1.2) X10*3/uL Eos # (Auto) (0.0-0.4) X10*3/uL Baso # (Auto) (0.0-0.2) X10*3/uL Abs Immat Gran (auto) (0.00-0.03) X10*3/uL Absolute Neuts (auto) (2.0-8.3) x10*3/uL Absolute Nucleated RBC (0.0-0.012) X10*3/uL Nucleated RBC % (auto) (0.0-0.2) /100WBC Sodium (135-145) mmol/L Potassium (3.3-5.1) mmol/L Chloride (96-108) mmol/L Carbon Dioxide (22-29) mmol/L Anion Gap (12-20) BUN (9-16) mg/dL Creatinine (0.5-1.4) mg/dL Estim Creat Clear Calc Estimated GFR Random Glucose (60-115) mg/dL Calcium (8.4-10.2) mg/dL Magnesium (1.6-2.6) mg/dL Total Bilirubin (0.0-1.0) mg/dL AST (5-37) U/L ALT (0-40) U/L Alkaline Phosphatase (39-117) U/L Troponin I High Sens 47.5 H D 44.4 H (<3.5-35.0) ng/L B-Natriuretic Peptide 475 H (<100) pg/mL Total Protein (6.5-8.0) g/dL Albumin (3.5-5.0) g/dL Urine Color Yellow Urine Appearance Clear Urine pH 5.5 (5.0-9.0) Ur Specific [place] 1.020 (1.005-1.025) Urine Protein Trace (Neg-Trace) mg/dL Urine Glucose (UA) Negative (Negative) mg/dL Urine Ketones Trace (Negative) mg/dL Urine Blood Negative (Negative) Urine Nitrite Negative (Negative) Ur Leukocyte Esterase Small (1+) H (Negative) Urine RBC 0-2 (0-2) /HPF Urine WBC 11-20 H (0-5) /HPF Ur Squamous Epith Cells 0-2 (0-2) /HPF Urine Bacteria None Seen (None Seen) Hyaline Casts 0-2 (0-2) /LPF COVID-19 (DERRELL) (Negative) COVID-19 Clin Com Imaging Data CT scan - head: Attestation: I personally reviewed and interpreted this imaging study as follows: My impression: Left inner ear pathology. Radiologist's impression: CT HEAD WITHOUT CONTRAST CLINICAL INFORMATION: Dizziness.? COMPARISON: CT head 01/06/2022. TECHNIQUE: Contiguous axial imaging was performed from the skull base to vertex without intravenous administration of contrast. This CT examination was performed using dose optimization techniques as appropriate, variously including the following: *Automated exposure control *Adjustment of mA and/or kV according to patient size (this includes techniques or standardized protocols for targeted exams where dose is matched to indication/reason for exam; i.e. extremities or head) *Use of iterative reconstruction technique FINDINGS: There is no intracranial hemorrhage, hydrocephalus, extra-axial surface collection, midline shift, or other herniation pattern. Paloma[place] to white matter differentiation is diffusely maintained without evidence of an evolved acute territorial infarct. The basilar cisterns are preserved. Redemonstrated complete opacification of left mastoid air cells and left middle ear cavity associated with progressive mastoid air cell septa erosive changes and progressive erosive changes involving the left tympanic plate and the periphery of the left middle ear cavity. 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 Redemonstrated left parotidectomy changes with progressive soft tissue within the parotidectomy bed encasing the left styloid process infiltrating the left stylomastoid and now opposing the dorsal margin of the left lateral pterygoid muscle. Findings are most concerning for tumor progression which can be correlated with any recent prior studies if available. A metallic lid weight within the left upper orbit is again noted. CT/CT head/brain wo IV con IMPRESSION: - Redemonstrated complete opacification of left mastoid air cells and left middle ear cavity associated with progressive mastoid air cell septa erosive changes and progressive erosive changes involving the left tympanic plate and the periphery of the left middle ear cavity. 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 ? - Redemonstrated left parotidectomy changes with progressive soft tissue within the parotidectomy bed encasing the left styloid process infiltrating the left stylomastoid and now opposing the dorsal margin of the left lateral pterygoid muscle. Findings are most concerning for tumor progression which can be correlated with any recent prior studies if available. ? - A metallic lid weight within the left upper orbit is again noted. Dictated By: Jerrod Hedrick MD Signed By: Electronically signed by Jerrod Hedrick MD 04/17/22 0953 Chest x-ray: Attestation: I personally reviewed and interpreted this imaging study as follows: My impression: No acute process. Radiologist's impression: EXAMINATION: XR CHEST CLINICAL INFORMATION: Dizziness. COMPARISON: January 06, 2022. TECHNIQUE: Frontal view of the chest was obtained. FINDINGS: No significant abnormality is noted involving the heart, lungs, mediastinum, or soft tissues. 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 Mild degenerative changes of the spine. XR/XR chest 1V IMPRESSION: Unremarkable examination. Dictated By: Zenon Quintero Signed By: Electronically signed by Carin 04/17/22 0958 ECG Data Attestation: I personally reviewed and interpreted this ECG as follows: Prior ECG tracings: available for review Interpretation: Vent. Rate: 090 BPM ? ? Atrial Rate: 090 BPM P-R Int: 148 ms? QRS Dur: 086 ms QT Int: 380 ms ? ? ? P-R-T Axes: 043 026 083 degrees QTc Int: 464 ms ? Normal sinus rhythm Minimal voltage criteria for LVH, may be normal variant ( Sokolow-Mattson ) Borderline ECG When compared with ECG of 06-JAN-2022 10:03, No significant change was found DD/ [id number] Critical Care Time Critical Care Time Critical Care Time: Yes Total Critical Care Time: 30 Attestation: I spent 30 minutes of Critical Care Time with this patient. This does not include time spent on separately reported billable procedures. Discharge Plan Discharge Clinical Impression: Osteomyelitis Patient Disposition: [facility] Transfer Details: [facility] Prescriptions: No Action tamsulosin [Flomax] 0.4 mg Capsule 0.4 mg PO BEDTIME metoprolol succinate 25 mg Tablet Extended Release 24 Hr 25 mg PO DAILY lovastatin 10 mg Tablet 10 mg PO BEDTIME insulin glargine [Lantus U-100 Insulin] 100 unit/mL Solution 5 unit SUBCUT BEDTIME lisinopril 5 mg Tablet 5 mg PO DAILY finasteride 5 mg Tablet 5 mg PO DAILY hydroxyzine HCl 25 mg Tablet 25 mg PO Q6H PRN (Reason: Itching) acetaminophen 325 mg Tablet 650 mg PO BID cefuroxime axetil 500 mg Tablet 500 mg PO BID Rx Instructions: PRESCRIBED 04/15/22 FOR 14 TABLETS ergocalciferol (vitamin D2) [Vitamin D2] 1,250 mcg (50,000 unit) Capsule 1,250 mcg PO TU@1000 magnesium L-lactate 84 mg Tablet Extended Release 84 mg PO TID empagliflozin 10 mg Tablet 10 mg PO DAILY folic acid 1 mg Tablet 1 mg PO DAILY gabapentin 300 mg Capsule 300 mg PO TID metformin 500 mg Tablet 500 mg PO DAILY Humalog U-100 Insulin 100 unit/mL Cartridge 1 sliding scale dose SUBCUT USEASDIRECTD Print Language: Slovak
--- NOTE | 2022-04-17 08:22 | ECG_ITS ---
Test Reason : DIZZINESS Blood Pressure : / mmHG Vent. Rate : 090 BPM Atrial Rate : 090 BPM P-R Int : 148 ms QRS Dur : 086 ms QT Int : 380 ms P-R-T Axes : 043 026 083 degrees QTc Int : 464 ms Normal sinus rhythm Nonspecific T wave abnormality Minimal voltage criteria for LVH, may be normal variant ( Sokolow-Mattson ) Abnormal ECG When compared with ECG of 06-JAN-2022 10:03, QT has shortened Referred By: Linda Rodarte Electronically Signed By:VELMA SILVESTRE
[2022-04-17 10:21] LABS: COVID-19 Test Negative (Negative)
[2022-04-17 11:05] LABS: MANUAL DIFF FLAG NO
[2022-04-17 11:06] LABS: Basophils Percent Auto 0.4 % (0-2); Eosinophils Absolute Auto 0.5 X10*3/uL (0.0-0.4); Eosinophils Percent Auto 8.6 % (0-4); Hematocrit 34.6 % (42.0-52.0); Hemoglobin 10.4 g/dl (14.0-18.0); Imm Gran Abs Auto 0.03 X10*3/uL (0.00-0.03); Imm Gran Pct Auto 0.6 % (0.0-0.4); Lymphocytes Absolute Auto 0.5 X10*3/uL (1.2-4.9); Lymphocytes Percent Auto 9.3 % (20-40); Mean Corpuscular HGB Conc 30.1 g/dl (31.0-36.0); Mean Corpuscular Hemoglobin 24.2 pg (27.0-33.0); Mean Corpuscular Volume 80.5 fL (80.0-98.0); Mean Platelet Volume 9.6 fL (9.4-12.4); Monocytes Absolute Auto 0.5 X10*3/uL (0.1-1.2); Monocytes Percent Auto 9.1 % (2-11); Neutrophils Absolute Auto 3.9 x10*3/uL (2.0-8.3); Platelet Count 408 X10*3/uL (160-400); Red Cell Distribution Width 17.4 % (11.0-16.0); White Blood Count 5.4 X10*3/uL (4.8-10.8)
[2022-04-17 11:30] LABS: Troponin-I High Sensitivity 47.5 ng/L (<3.5-35.0)
[2022-04-17 11:31] LABS: Alanine Aminotransferase 22 U/L (0-40); Albumin Level 3.7 g/dL (3.5-5.0); Alkaline Phosphatase 148 U/L (39-117); Anion Gap 16 (12-20); Aspartate Amino Transferase 25 U/L (5-37); Bilirubin Total 0.4 mg/dL (0.0-1.0); Blood Urea Nitrogen 23 mg/dL (9-16); Calcium 8.8 mg/dL (8.4-10.2); Carbon Dioxide 20 mmol/L (22-29); Chloride 110 mmol/L (96-108); Creatinine Clr Calc Pharmacy 55.7; Estimated Glomerular Filt Rate 48; Glucose Random 123 mg/dL (60-115); Magnesium 2.2 mg/dL (1.6-2.6); Potassium 4.6 mmol/L (3.3-5.1); Sodium 141 mmol/L (135-145); Total Protein 7.1 g/dL (6.5-8.0)
--- NOTE | 2022-04-17 11:38 | PC.NURSE ---
bladder scan greater than 1,000. joiner placed
[2022-04-17] MEDS: Lidocaine HCl 2 % Urojet 10 ML JEL.PF.APP TOPICAL (11:43)
[2022-04-17 11:45] LABS: Appearance Urine Clear; Color Urine Yellow; Glucose Urine UA Negative (Negative); Leukocyte Esterase Urine Small (1+) (Negative); Nitrite Urine Negative (Negative); PH 5.5 (5.0-9.0); UMIC TRIGGER UACC YES; Urine Blood Negative (Negative); Urine Ketones Trace mg/dL (Negative); Urine Protein Trace mg/dL (Neg-Trace)
[2022-04-17] MEDS: diphenhydrAMINE HCL 50 MG/ML VIAL 25 MG IVPUSH (11:49)
[2022-04-17] MEDS: 0.9 % Sodium Chloride 1,000 ML 999 ML IV (11:50)
[2022-04-17] MEDS: Acetaminophen 325 MG TABLET 650 MG PO (11:50)
[2022-04-17 11:52] LABS: Bacteria Urine None Seen (None Seen); Hyaline Casts Urine 0-2 /LPF (0-2); RBC Urine 0-2 /HPF (0-2); Squamous Epithelial Cell Urine 0-2 /HPF (0-2); UACC Culture Trigger YES
[2022-04-17 13:18] VITALS: BP 150/85; PULSE 89; RESP 12; O2SAT 100
[2022-04-17 13:49] LABS: Troponin-I High Sensitivity 44.4 ng/L (<3.5-35.0)
[2022-04-17 14:54] LABS: B Type Natriuretic Peptide 475 pg/mL (<100)
[2022-04-17 15:46] VITALS: BP 113/54; BP 150/85; PULSE 81; PULSE 89; RESP 14; TEMP 36.7; O2SAT 100
--- NOTE | 2022-04-17 16:08 | PHA.MEDREC ---
Med rec complete, patient was a patient at [facility] from 01/28 to 02/24 and these are the medications he was on at this facility. What he was doing after his discharge is unclear and sister believes he was homeless and not taking any medications. Pharmacy Consult ? Medication Reconciliation Pharmacy has completed the medication reconciliation.
--- NOTE | 2022-04-17 16:46 | MHC.CM.ED ---
Received case management consult from Linda SIMMS. Patient came to the ER due to unsteady gait. Patient was in [facility] and discharged to a [facility] facility in [place]. Patient ended up in [facility] in [place]. [facility] contacted patient's sister, Bhavani and asked her to come to their hospital to help develop a discharge plan. Hospital discharged patient to Bhavani without any other option. Bhvaani and patient hadn't spoken in over 10 years prior to this. Patient has a history of PICA with paper products. Patient continues to be unsteady on her feet. Bhavani can't safely provide care for her brother. Bhavani has 2 children and fosters an disabled adult. Patient can't return to her home. Bhavani is agreeable to referral being broadcasted in [facility]. Referral broadcasted throughout entire state [facility]. T/W is trying to obtain records and HCP from [facility] and [facility]. T/W is trying to verify Covid vaccine status. Continue to monitor for d/c needs.
[2022-04-17] MEDS: levoFLOXacin/D5W 500 MG/100 ML PIGGYBACK 100 MG IV (17:34)
--- NOTE | 2022-04-17 18:00 | PC.NURSE ---
attempted to call report to [facility]. Unable to connect with RN. will attempt again at a later time
[2022-04-17 19:41] VITALS: BP 129/72; RESP 94; O2SAT 99
== END 2022-04-17 20:02 | disposition short-term general hospital (02) ==
PROVIDERS: Physician Assistant Medical; Emergency Provider Emergency Medicine Emergency Medical Services
DX: H60.12 Cellulitis of left external ear (principal); M86.661 Other chronic osteomyelitis, right tibia and fibula; R42 Dizziness and giddiness; R26.2 Difficulty in walking, not elsewhere classified; R30.0 Dysuria; R51.9 Headache, unspecified; R06.02 Shortness of breath; Z20.822 Contact with and (suspected) exposure to COVID-19; Z79.899 Other long term (current) drug therapy
CPT/HCPCS: 36415; 51702; 51798; 70450; 71045; 80053; 81001; 83735; 83880; 84484; 85025; 87086; 87635; 93005; 96361; 96365; 96375; 97162; 99285; J1200; J1956